=== PATIENT | female | born 1935 | race Caucasian/White ===

== ENCOUNTER 2016-04-16 08:25 | Emergency (ER) | payer OTHER ==
[~2016-04-16] VITALS: Ht 157.5 cm; Wt 97.2 kg
[~2016-04-16 08:25] MED LIST: ALDACTONE25 MG PO; AMARYL1 MG PO; ASPIR 8181 M1 PO; Aspirin E.C. PO; BENICAR40 MG PO; BYSTOLIC10 MG PO; Bystolic PO; CARDIZEM CD,CA120 MG PO; CATAPRES0.2 MG PO; CLINDAMYCIN HC300 MG PO; CLONIDINE HCL0.1 MG PO; Catapres PO; Glucophage PO; LASIX40 MG PO; LIPITOR20 MG PO; METFORMIN HCL500 MG PO; MICRO-K10 ME1 PO; NORCO 5/3251 TABLET PO; TERAZOSIN HCL2 MG PO; TYLENOL EXTRA500 MG PO; ULTRAM50 MG PO; ZESTRIL,PRINIVI40 MG PO
[2016-04-16 09:56] LABS: EOSINOPHIL (%) 0 % (0-5); HEMATOCRIT 38.1 % (36.0-46.0); IMMATURE GRANULOCYTE (%) 0.4 % (0.0-0.7); IMMATURE GRANULOCYTE COUNT 0.3 K/uL; LYMPHOCYTE COUNT 1.1 K/uL (1.0-2.8); MCH 28.1 PG (29.0-34.0); MCHC 32.5 G/DL (30.0-36.0); MCV 86.4 FL (83-99); MEAN PLAT.VOLUME 12.3 uM^3 (9.5-12.4); MONOCYTE (%) 4.8 % (3-12); MONOCYTE COUNT 0.4 K/uL (0-0.8); NEUTROPHIL (%) 81.6 % (45-76); NEUTROPHIL COUNT 6.9 K/uL (1.8-6.4); PLATELET COUNT 180 K/uL (156-360); RBC DIS.WIDTH-CV 12.9 % (11.8-14.6); RBC DIS.WIDTH-SD 39.5 % (39-53); RED BLOOD COUNT 4.41 M/uL (3.80-5.20); WHITE BLOOD COUNT 8.4 K/uL (4.1-10.2)
[2016-04-16 10:05] LABS: CHLORIDE 104 mEq/L (99-109); POTASSIUM 4.1 mEq/L (3.7-5.4); SODIUM 140 mEq/L (136-147)
[2016-04-16 10:07] LABS: GLUCOSE 213 mg/dL (70-99)
[2016-04-16 10:09] LABS: ANION GAP 11 MEQ/L (2-14)
[2016-04-16 10:11] LABS: GFR ESTIMATE (CALCULATED) 42 mL/min/
[2016-04-16 10:12] LABS: UREA NITROGEN (BUN) 24 mg/dL (9-23)
[2016-04-16 12:25] VITALS: BP 197/53
== END 2016-04-16 12:42 | disposition home or self-care (01) ==
LOC: EME → EDBD 08:25 → EME 08:25
PROVIDERS: Emergency Medicine
DX: S01.81XA Laceration without foreign body of other part of head, initial encounter (principal); S30.0XXA Contusion of lower back and pelvis, initial encounter; S09.90XA Unspecified injury of head, initial encounter; E11.9 Type 2 diabetes mellitus without complications; W19.XXXA Unspecified fall, initial encounter; Z23 Encounter for immunization
CPT/HCPCS: 70450; 72131; 80048; 85025; 93005; 99281; 99285

== ENCOUNTER 2017-04-22 16:06 | Emergency (ER) | payer OTHER ==
[~2017-04-22] VITALS: Ht 157.5 cm; Wt 99.8 kg
[2017-04-22 19:52] VITALS: BP 178/78
== END 2017-04-22 19:52 | disposition home or self-care (01) ==
LOC: EME 16:06
DX: S80.01XA Contusion of right knee, initial encounter (principal); S80.02XA Contusion of left knee, initial encounter; S00.01XA Abrasion of scalp, initial encounter; W01.0XXA Fall on same level from slipping, tripping and stumbling without subsequent striking against object, initial encounter; Z79.82 Long term (current) use of aspirin; E78.5 Hyperlipidemia, unspecified; I10 Essential (primary) hypertension; E11.9 Type 2 diabetes mellitus without complications; F41.9 Anxiety disorder, unspecified; K21.9 Gastro-esophageal reflux disease without esophagitis
CPT/HCPCS: 70450; 73564; 99281; 99283